=== PATIENT | female | born 1980 | race Hispanic/Latino ===

== ENCOUNTER 2023-03-29 04:34 | Emergency (ER) | payer BC ==
[~2023-03-29] VITALS: Ht 160 cm; Wt 84.8 kg
[2023-03-29] MEDS ORDERED: MECLIZINE HCL 25 MG TABLET PO ONE (05:00)
[2023-03-29 05:01] VITALS: BP 127/81
[2023-03-29] MEDS ORDERED: ONDA4TAB10 PO (05:01)
[2023-03-29] MEDS ORDERED: MECL-160 PO (05:01)
== END 2023-03-29 05:21 | disposition home or self-care (01) ==
LOC: EDH 04:34
DX: R42 Dizziness and giddiness (principal); Z90.49 Acquired absence of other specified parts of digestive tract